=== PATIENT | female | born 1985 | race Hispanic/Latino ===

== ENCOUNTER 2023-02-10 23:03 | Emergency (ER) | payer MEDICAID ==
[~2023-02-10] VITALS: Ht 157.5 cm; Wt 100.7 kg
[2023-02-11] MEDS ORDERED: KETOROLAC 30MG VIAL (30MG/ML) IM ONE
[2023-02-11 00:32] VITALS: BP 138/73; PULSE 78; RESP 18; O2SAT 96
[2023-02-11] MEDS ORDERED: NAPR-1180 PO (01:23)
== END 2023-02-11 01:32 | disposition home or self-care (01) ==
LOC: EDH 23:03
DX: M25.562 Pain in left knee (principal); Z90.49 Acquired absence of other specified parts of digestive tract; Z90.710 Acquired absence of both cervix and uterus
CPT/HCPCS: 99283; 73562; 96372; J1885

== ENCOUNTER 2023-06-05 07:34 | Emergency (ER) | payer MEDICAID, OTHER ==
[~2023-06-05] VITALS: Ht 157.5 cm; Wt 103.0 kg
[~2023-06-05 07:34] MED LIST: NAPR-1180 PO
[2023-06-05 07:39] VITALS: BP 134/81; PULSE 61; RESP 16; O2SAT 99
[2023-06-05 08:01] LABS: RAPID GROUP A STREP negative (NEGATIVE)
[2023-06-05 08:11] LABS: INFLUENZA TYPE A Negative For Type A (NEGATIVE); INFLUENZA TYPE B Negative For Type B (NEGATIVE)
[2023-06-05 08:14] LABS: SARS-CoV-2, RNA, NAAT POSITIVE SARS CoV-2 (NEGATIVE)
[2023-06-05] MEDS ORDERED: NIRM1TAB5 PO (09:01)
== END 2023-06-05 09:18 | disposition home or self-care (01) ==
LOC: EDH 07:34
DX: U07.1 COVID-19 (principal); Z90.49 Acquired absence of other specified parts of digestive tract; Z90.710 Acquired absence of both cervix and uterus; Z98.890 Other specified postprocedural states
CPT/HCPCS: 99283; 87635; 87880; 87804 ×2; C9803

== ENCOUNTER 2023-07-10 10:53 | Emergency (ER) | payer OTHER ==
[~2023-07-10] VITALS: Ht 157.5 cm; Wt 103.0 kg
[~2023-07-10 10:53] MED LIST changes: +NIRM1TAB5 PO
[2023-07-10 11:35] VITALS: BP 128/70; PULSE 70; RESP 16
[2023-07-10 12:28] LABS: RAPID GROUP A STREP negative (NEGATIVE)
[2023-07-10 12:35] LABS: SARS-CoV-2, RNA, NAAT NEGATIVE SARS CoV-2 (NEGATIVE)
[2023-07-10 12:42] LABS: INFLUENZA TYPE A Negative For Type A (NEGATIVE); INFLUENZA TYPE B Negative For Type B (NEGATIVE)
[2023-07-10 15:51] LABS: APPEARANCE,URINE CLEAR (CLEAR); BILIRUBIN,URINE NEGATIVE (NEGATIVE); COLOR,URINE YELLOW (YELLOW); GLUCOSE, URINE (UA) NEGATIVE (NEGATIVE); KETONES,URINE NEGATIVE (NEGATIVE); LEUKOCYTE ESTERASE ,URINE NEGATIVE Leu/uL (NEGATIVE); NITRATE,URINE NEGATIVE (NEGATIVE); OCCULT BLOOD,URINE NEGATIVE (NEGATIVE); PROTEIN,URINE NEGATIVE (NEGATIVE); UROBILINOGEN,URINE 0.2 mg/dL (0.2-1.0)
[2023-07-10 15:52] LABS: ADD UA MICROSCOPIC YES
[2023-07-10 15:55] LABS: MUCUS,URINE RARE LPF (None Seen); RBC,URINE 0-1 /HPF (0-1); SQUAMOUS EPITHELIAL CELL,UR FEW /HPF (0-2)
[2023-07-10] MEDS ORDERED: BENZ200C53 PO (16:04)
[2023-07-10] MEDS ORDERED: FLUT16H NASAL (16:04)
[2023-07-10] MEDS ORDERED: BROM118S48 PO (16:04)
== END 2023-07-10 16:19 | disposition home or self-care (01) ==
LOC: EDH 10:53
DX: J00 Acute nasopharyngitis [common cold] (principal); R07.89 Other chest pain; Z20.822 Contact with and (suspected) exposure to COVID-19; Z79.899 Other long term (current) drug therapy; Z90.49 Acquired absence of other specified parts of digestive tract; Z90.89 Acquired absence of other organs; Z90.710 Acquired absence of both cervix and uterus; Z98.890 Other specified postprocedural states
CPT/HCPCS: 81001; 87635; 87804; 87880